=== PATIENT | female | born 1975 | race Hispanic/Latino ===

== ENCOUNTER 2023-01-30 23:51 | Emergency (ER) | payer BC ==
[~2023-01-30] VITALS: Ht 170.2 cm; Wt 73.5 kg
[2023-01-31] MEDS ORDERED: ONDANSETRON HCL INJ 2MG/ML 2ML 2 MG/ML VIAL IV STA (00:37)
[2023-01-31] MEDS ORDERED: Morphine 4mg INJECTION 4 MG/ML INJ IV ONE (00:45)
[2023-01-31] MEDS ORDERED: SODIUM CHLORIDE 0.9% 1000ML 1,000 ML IV ONE (00:45)
[2023-01-31 01:18] LABS: EOSINOPHILS # (AUTO) 0.1 (0.0-0.4); EOSINOPHILS % 0.9 % (0.0-6.0); HEMATOCRIT 46.4 % (34.2-44.1); HEMOGLOBIN 15.5 g/dL (12.0-16.0); LYMPHOCYTES # (AUTO) 1.4 (1.0-3.2); MEAN CORPUSCULAR HEMOGLOBIN 30.8 pg (28-32); MEAN CORPUSCULAR HGB CONC 33.4 g/dL (31-35); MEAN CORPUSCULAR VOLUME 92.2 fL (81-99); MONOCYTES # (AUTO) 0.5 (0.2-0.8); MONOCYTES % 6.6 % (4.4-11.3); NEUTROPHILS # (AUTO) 5.4 (2.1-6.9); NEUTROPHILS % 73.2 % (38.7-80.0); PLATELET COUNT 250 x10e3/uL (140-360); RED BLOOD COUNT 5.03 x10e6/uL (3.6-5.1); RED CELL DISTRIBUTION WIDTH 12.6 % (11.7-14.4); WHITE BLOOD COUNT 7.37 x10e3/uL (4.8-10.8)
[2023-01-31 01:26] LABS: PREGNANCY TEST, URINE NEGATIVE (NEGATIVE)
[2023-01-31 01:32] LABS: ALBUMIN 4.3 g/dL (3.5-5.0); ANION GAP 15.6 mmol/L (8-16); BILIRUBIN,TOTAL 0.9 mg/dL (0.2-1.2); CALCIUM 9.8 mg/dL (8.4-10.2); CREATININE, SERUM 0.94 mg/dL (0.57-1.11); POTASSIUM 3.6 mmol/L (3.5-5.1); TOTAL PROTEIN 8.5 g/dL (6.5-8.1)
[2023-01-31 01:38] LABS: COLOR,URINE YELLOW (YELLOW)
[2023-01-31 01:39] LABS: BILIRUBIN,URINE NEGATIVE (NEGATIVE); CLARITY,URINE CLEAR (CLEAR); GLUCOSE, URINE NEGATIVE (NEGATIVE); KETONES,URINE TRACE (NEGATIVE); LEUKOCYTE ESTERASE ,URINE NEGATIVE (NEGATIVE); NITRITE,URINE NEGATIVE (NEGATIVE); PH,URINE 5.5 (5 - 7); PROTEIN,URINE DIPSTICK NEGATIVE (NEGATIVE); URINE UROBILINOGEN 0.2 mg/dL (0.2 - 1)
[2023-01-31 01:58] LABS: TROPONIN I 0.002 ng/mL (0-0.300)
[2023-01-31 02:37] LABS: BACTERIA,URINE FEW /HPF; EPITHELIAL CELLS,URINE FEW /LPF
[2023-01-31 02:38] LABS: CALCIUM OXALATE CRYSTALS,UR MODERATE (FEW)
[2023-01-31] MEDS ORDERED: DICYCLOMINE HCL20 MG PO (02:50)
[2023-01-31] MEDS ORDERED: ONDANSETRON ODT4 MG SL (02:50)
[2023-01-31] MEDS ORDERED: PANTOPRAZOLE SO40 MG PO (02:50)
[2023-01-31 03:05] VITALS: BP 129/84; PULSE 84; RESP 18; TEMP 98.3; O2SAT 100
== END 2023-01-31 03:00 | disposition home or self-care (01) ==
LOC: ER 01-31 00:10
DX: R10.11 Right upper quadrant pain (principal); R11.2 Nausea with vomiting, unspecified; R19.7 Diarrhea, unspecified; E11.9 Type 2 diabetes mellitus without complications; K76.0 Fatty (change of) liver, not elsewhere classified; R94.31 Abnormal electrocardiogram [ECG] [EKG]
CPT/HCPCS: 36415; 76705; 80053; 81001; 81025; 83690; 84484; 85025; 93005; 99284; C9113; J2270; J2405; J7030

== ENCOUNTER 2024-01-02 19:58 | Emergency (ER) | payer BC ==
[~2024-01-02] VITALS: Ht 170.2 cm; Wt 83.0 kg
[~2024-01-02 19:58] MED LIST: DICYCLOMINE HCL20 MG PO; MELOXICAM7.5 MG PO; ONDANSETRON ODT4 MG SL; OZEMPIC2 MG/0.75 SC; PANTOPRAZOLE SO40 MG PO
[2024-01-02 20:12] VITALS: TEMP 98.6
[2024-01-02 20:33] LABS: BASOPHILS % 0.5 % (0.0-1.0); EOSINOPHILS # (AUTO) 0.1 (0.0-0.4); HEMATOCRIT 48.2 % (34.2-44.1); HEMOGLOBIN 15.7 g/dL (12.0-16.0); LYMPHOCYTES # (AUTO) 2.8 (1.0-3.2); MEAN CORPUSCULAR HEMOGLOBIN 30.4 pg (28-32); MEAN CORPUSCULAR HGB CONC 32.6 g/dL (31-35); MEAN CORPUSCULAR VOLUME 93.4 fL (81-99); MONOCYTES # (AUTO) 0.5 (0.2-0.8); MONOCYTES % 6.7 % (4.4-11.3); NEUTROPHILS # (AUTO) 4.4 (2.1-6.9); NEUTROPHILS % 55.7 % (38.7-80.0); PLATELET COUNT 258 x10e3/uL (140-360); RED BLOOD COUNT 5.16 x10e6/uL (3.6-5.1); RED CELL DISTRIBUTION WIDTH 12.4 % (11.7-14.4); WHITE BLOOD COUNT 7.86 x10e3/uL (4.8-10.8)
[2024-01-02 20:51] LABS: ALBUMIN 4.6 g/dL (3.5-5.0); ANION GAP 14.7 mmol/L (8-16); BILIRUBIN,TOTAL 0.5 mg/dL (0.2-1.2); CALCIUM 9.9 mg/dL (8.4-10.2); CREATININE, SERUM 0.99 mg/dL (0.57-1.11); POTASSIUM 3.7 mmol/L (3.5-5.1)
[2024-01-02 21:50] VITALS: PULSE 86; RESP 13
[2024-01-02 22:07] LABS: CLARITY,URINE CLEAR (CLEAR); COLOR,URINE YELLOW (YELLOW); GLUCOSE, URINE NEGATIVE (NEGATIVE); KETONES,URINE NEGATIVE (NEGATIVE); LEUKOCYTE ESTERASE ,URINE NEGATIVE (NEGATIVE); NITRITE,URINE NEGATIVE (NEGATIVE); PH,URINE 6.5 (5 - 7); PROTEIN,URINE DIPSTICK NEGATIVE (NEGATIVE)
[2024-01-02 22:08] LABS: BILIRUBIN,URINE NEGATIVE (NEGATIVE); PREGNANCY TEST, URINE NEGATIVE (NEGATIVE); URINE UROBILINOGEN 0.2 mg/dL (0.2 - 1)
[2024-01-02 22:16] VITALS: BP 129/90; PULSE 86; RESP 13; TEMP 97.9; O2SAT 97
[2024-01-02 22:52] LABS: RBC,URINE 0-5 /HPF (0-5); WBC,URINE (MAN) 0-5 /HPF (0-5)
[2024-01-02 22:53] LABS: BACTERIA,URINE MODERATE /HPF; EPITHELIAL CELLS,URINE MODERATE /LPF
== END 2024-01-02 22:17 | disposition home or self-care (01) ==
LOC: ER 20:12
DX: R42 Dizziness and giddiness (principal); E11.65 Type 2 diabetes mellitus with hyperglycemia; F41.9 Anxiety disorder, unspecified; R94.31 Abnormal electrocardiogram [ECG] [EKG]
CPT/HCPCS: 36415; 80053; 81001; 81025; 82948; 84484; 85025; 93005; 99284